=== PATIENT | male | born 1945 | race Caucasian/White ===

== ENCOUNTER → 2018-10-25 | Outpatient (CLI) | payer MEDICARE, BC ==
--- NOTE | 2018-10-25 16:43 | RADIOLOGY IMAGING REPORT ---
FACILITY: [facility] PATIENT NAME: John Lake : 1945 MR: [id number] V: [id number] EXAM DATE: ORDERING PHYSICIAN: JOHN ROBLEDO TECHNOLOGIST: Location: [facility] [place] Patient: John Lake : 1945 Visit/Account:[id number] Date of Sevice: 10/25/2018 CT OF THE BRAIN WITHOUT CONTRAST HISTORY: Blurred vision PROCEDURE: 3.0 mm contiguous axial sections were performed through the brain. Sagittal and coronal r eformats were submitted. COMPARISON: None FINDINGS: BRAIN: Brain and intracranial structures: There is no mass lesion, hemorrhage or acute infarct. Orbits (included portions): Normal. Scalp: Normal. Skull: Normal. Paranasal sinuses and mastoid air cells (included portions): Small retention cyst or polyp in the lef t maxillary sinus. A few right mastoid air cells are nonspecifically opacified. IMPRESSION: No evidence of acute intracranial abnormality. Findings of no acute abnormality telephoned directly to the ordering provider by the radiology [facility]. One of the following dose optimization techniques was utilized in the performance of this exam: Autom ated exposure control; adjustment of the mA and/or kV according to the patient's size; or use of an i terative reconstruction technique. Specific details can be referenced in the facility's radiology C T exam operational policy. Report Dictated By: González Boswell MD at 10/25/2018 4:29 PM Report E-Signed By: González Boswell MD at 10/25/2018 4:39 PM WSN:[id number]
== END ==
LOC: CT 15:54
PROVIDERS: ATTEND Nurse Practitioner Family
DX: H53.8 Other visual disturbances (principal)
CPT/HCPCS: 70450